=== PATIENT | male | born 1950 | race Caucasian/White ===

== ENCOUNTER → 2017-07-05 | Outpatient (CLI) | payer MEDICARE, OTHER ==
[~2017-07-05] MED LIST: BYDUREON P2 MG/0.65 SQ; DILTIAZEM 24HR180 M2 PO; JARDIANCE10 MG PO; LIPITOR PO; LOSARTAN-HCTZ1 EACH PO; METFORMIN HCL1000 M1 PO; PRILOSEC PO; VOLTAREN75 MG PO
--- NOTE | ~2017-07-05 | US49 ---
[facility] A Service [facility] RADIOLOGY TEXT RESULTS PATIENT: MAHIN SHAVER LOCATION: [facility] : [birth year] UNIT #: [id number] AGE: [address]: SOLO EVANS MD SEX: M ORDER DR: [id number] [facility] [address] [place], [place] [address] [id number] O MR#: [id number] Acc #: [id number] NAME: MAHIN SHAVER : 1950 SEX: M STUDY DATE/TIME: 07/05/2017 13:30 UNIT: [facility] ROOM: STUDY DESCRIPTION: US Extremity Non Vasc Complete Attending Physician: Solo Evans M.D. Referring Physician: Solo Evans M.D. Ordering Physician: Solo Evans M.D. Primary Care Physician: Solo Evans M.D. MEDICAL IMAGING REPORT This report is preliminary unless electronic signature is present EXAM Ultrasound of the groin, 07/05/2017. INDICATIONS Burning intermittent inguinal pain on the right for a month, bulging in the area that occurs intermittently. Clinical concern for hernia. The patient reports that the bulging in the right inguinal region is not present at the time of examination today. TECHNIQUE Sonographic imaging of the right inguinal region was performed in the area of patient concern. COMPARISON There are no comparisons. FINDINGS There is no distinct evidence of inguinal hernia containing bowel at the time of the examination. Images were performed before and after Valsalva maneuver, and no peristalsing bowel was identified. There is nonspecific soft tissue and probable fat in the inguinal canal. Cine loop images were also performed and demonstrated similar findings. If there is persistent clinical concern for an inguinal hernia, cross-sectional imaging with CT would be recommended for further assessment and characterization. IMPRESSION Negative inguinal ultrasound on the right. No peristalsing bowel identified in the right inguinal canal. CT could be performed for further assessment, if clinically desired or warranted. Dictated by... Dano Albert M.D. [facility] A Service [facility] RADIOLOGY TEXT RESULTS PATIENT: MAHIN SHAVER LOCATION: [facility] : 48 UNIT #: [id number] AGE: [address]: SOLO EVANS MD SEX: M ORDER DR: THIS IS AN ELECTRONICALLY VERIFIED REPORT Dano Albert M.D. at 07/06/2017 3:10 PM Karthikeyan TD: 07/05/2017 18:41 JOB #: [id number] MEDICAL IMAGING REPORT Page 1 of 1 COPY
== END | disposition home or self-care (01) ==
LOC: CGUS 12:53
DX: R10.31 Right lower quadrant pain (principal)
CPT/HCPCS: 76881

== ENCOUNTER → 2017-07-11 | Outpatient (CLI) | payer MEDICARE, OTHER ==
--- NOTE | ~2017-07-11 | EKG ---
PATIENT: MAHIN SHAVER UNIT #: [id number] Ventricular Rate: 82 BPM Atrial Rate: 82 BPM P-R Interval: 148 ms QRS Duration: 82 ms Q-T Interval: 380 ms QTC Calculation(Bezet): 443 ms P [place]: 69 degrees Calculated R [place]: 24 degrees Calculated T [place]: 64 degrees Diagnosis Line: Normal sinus rhythm Diagnosis Line: Normal ECG Diagnosis Line: No previous ECGs available Diagnosis Line: Confirmed by YA TORRES MD ([id number]) on Diagnosis Line: 07/13/2017 10:49:05 AM INTERPRETING MD: MELISSA SMITH
[2017-07-11 09:21] LABS: HEMATOCRIT 50.4 % (38.0-50.0); HEMOGLOBIN 17.2 gm/dL (13.0-16.0); MEAN CELL VOLUME 96.7 FL (83-96); MEAN CORPUSCULAR HEMOGLOBIN 33.1 PG (28-34); MEAN CORPUSCULAR HGB CONC 34.2 g/dL (30-36); MEAN PLATELET VOLUME 9.7 FL (6.5-11.5); RED BLOOD COUNT 5.21 X10e (3.90-5.60); RED CELL DISTRIBUTION WIDTH 13.4 % (11.0-15.5); WHITE BLOOD COUNT 9.6 X10e3 (4.0-10.5)
[2017-07-11 09:55] LABS: BUN/CREATININE RATIO 31.66; CALCIUM SERUM 9.8 mg/dL (8.4-10.2); CREATININE SERUM 1.2 mg/dL (0.6-1.4); GLOM FILT RATE Estimated 62.2 mL/min (>60); POTASSIUM 4.3 mmol/L (3.5-5.1)
== END | disposition home or self-care (01) ==
LOC: CAMB 07:39
PROVIDERS: Surgery
DX: Z01.818 Encounter for other preprocedural examination (principal); K40.90 Unilateral inguinal hernia, without obstruction or gangrene, not specified as recurrent
CPT/HCPCS: 36415; 80048; 85027; 93005

== ENCOUNTER → 2017-07-16 | Day surgery (SDC) | payer MEDICARE, OTHER ==
--- NOTE | ~2017-07-16 | OR ---
Unit #: [id number] #: [id number] Patient: MAHIN SHAVER [id number] [address] [id number] O MR#: [id number] NAME: MAHIN SHAVER ROOM: Date of Procedure: 07/16/2017 Admission Date: 07/16/2017 Surgeon: Serge Aquino M.D. : 1950 Attending Physician: Serge Aquino M.D. Primary Care Physician: Elodia Serrano M.D. OPERATIVE REPORT PREOPERATIVE DIAGNOSIS Right groin pain. POSTOPERATIVE DIAGNOSIS Indirect right inguinal hernia. PROCEDURE PERFORMED Laparoscopic preperitoneal inguinal hernia repair of right-sided indirect inguinal hernia. OPERATIONS AND MAINTENANCE MANAGER None. ANESTHESIA General anesthesia. ESTIMATED BLOOD LOSS Minimal. IV FLUIDS 800 crystalloid. COMPLICATIONS None. INDICATIONS FOR PROCEDURE The patient is a 66-year-old gentleman with pain in his right testicle and right groin consistent with probable early inguinal hernia. DESCRIPTION OF PROCEDURE The patient was taken to the operating theater and placed in supine position. General anesthesia was induced. The abdomen was prepped and draped. Infraumbilical incision was then made. A small incision was made in the anterior sheath. I created the preperitoneal space with blunt dissection. A Veress needle was placed intraabdominally. The abdomen was insufflated to 15 mmHg with CO2. I placed a 5-mm port at the umbilicus. The patient was placed in Trendelenburg. I identified a right-sided indirect inguinal hernia, not incarcerated. No evidence of left-sided hernia. I then released the pneumoperitoneum. Using the AutoSuture balloon dissection system, I created the preperitoneal space in the right side only. I placed two 5-mm ports in the midline. I dissected the right groin, identifying the lateral space and the Erik ligament. I Unit #: [id number] #: [id number] Patient: MAHIN SHAVER skeletonized the cord and then the cord from the hernia sac. The hernia sac was reduced. I used a large 3DMax mesh. This was anteriolized and covered the direct and indirect spaces nicely. This was secured to Erik ligament as well as lateral anterior musculature with a tacking device. Hemostasis was adequate. I released the pneumopreperitoneum with care taken to avoid the peritoneum sliding posterior to the mesh. The ports were removed and the fascia was closed with 0 Vicryl and skin with 4-0 Vicryl. The patient tolerated the procedure well and sent to recovery room in good condition. Dictated by... Nicko Leonard/ken TD: 07/16/2017 12:07 JOB #: [id number] OPERATIVE REPORT Page 1 of 1 X Serge Aquino MD X PROCEDURE OPERATIVE NOTE
== END | disposition home or self-care (01) ==
LOC: CSUR 06:47
DX: K40.90 Unilateral inguinal hernia, without obstruction or gangrene, not specified as recurrent (principal); I12.9 Hypertensive chronic kidney disease with stage 1 through stage 4 chronic kidney disease, or unspecified chronic kidney disease; E11.22 Type 2 diabetes mellitus with diabetic chronic kidney disease; N18.9 Chronic kidney disease, unspecified; N40.0 Benign prostatic hyperplasia without lower urinary tract symptoms; K21.9 Gastro-esophageal reflux disease without esophagitis; M17.0 Bilateral primary osteoarthritis of knee; E78.5 Hyperlipidemia, unspecified; G47.30 Sleep apnea, unspecified; Z79.84 Long term (current) use of oral hypoglycemic drugs; Z79.899 Other long term (current) drug therapy
CPT/HCPCS: 82947; C1781; J0330; J0690; J1100; J1644; J2250; J2405; J2710; J3010